=== PATIENT | female | born 1945 | race Caucasian/White ===

== ENCOUNTER 2019-03-08 07:34 | Inpatient (IN) | payer OTHER ==
[2019-03-08] MEDS ORDERED: Senna TAB 8.6 mg* TAB PO PRN (19:14)
[2019-03-08] MEDS ORDERED: Magnesium Hydroxide LIQ* 30 ML UDC PO PRN (19:14)
[2019-03-08] MEDS ORDERED: Atorvastatin* 80 MG TAB PO ONE (19:24)
[2019-03-08] MEDS: Acetaminophen TAB* 325 MG PO PRN (20:37)
[2019-03-08] MEDS: Docusate CAP* 100 MG PO SCH (20:37)
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
[2019-03-08] MEDS ORDERED: Atorvastatin* 10 MG TAB PO ONE (21:00)
[2019-03-08] MEDS: CMCS:Dabigatran CAP(NF) 150 MG CAP PO SCH (21:18)
[2019-03-09] MEDS: Acetaminophen TAB* 325 MG PO PRN ×3 (09:19→21:40)
[2019-03-09] MEDS: Docusate CAP* 100 MG PO SCH ×2 (09:19→21:18)
[2019-03-09] MEDS: Lisinopril TAB* 10 MG PO SCH (09:19)
[2019-03-09] MEDS: Metoprolol Succinate XL TAB* 50 MG PO SCH (09:20)
[2019-03-09] MEDS: Hydrochlorothiazide TAB* 25 MG PO SCH (09:20)
[2019-03-09] MEDS: CMCS:Dabigatran CAP(NF) 150 MG CAP PO SCH ×2 (09:20→21:18)
[2019-03-09] MEDS: Aspirin EC TAB* 81 MG TAB.EC PO SCH (09:20)
--- NOTE | 2019-03-09 11:48 | PN ---
Progress Note Date of Service: 03/09/19 Note: AJAY BABCOCK was visited. Therapy notes read and reviewed. She has significant ecchymoses on her left leg that I did not noticed last night. Leg was x-rayed in [place] Current Medications: Active Medications Generic Name Dose Route Start Last Admin Trade Name Freq PRN Reason Stop Dose Admin Acetaminophen 650 mg 03/08/19 19:14 03/09/19 09:19 Tylenol Tab* PO 650 mg Q4H PRN Administration MILD PAIN or TEMP > 100.4 Aspirin 81 mg 03/09/19 09:00 03/09/19 09:20 Aspirin Ec Tab* PO 81 mg DAILY PADILLA Administration Atorvastatin Calcium 10 mg 03/09/19 17:00 Lipitor* PO 1700 PADILLA Dabigatran 150 mg 03/08/19 21:00 03/09/19 09:20 Pradaxa Cap(Nf) PO 150 mg BID PADILLA Administration Docusate Sodium 100 mg 03/08/19 21:00 03/09/19 09:19 Colace Cap* PO 100 mg BID PADILLA Administration Hydrochlorothiazide 12.5 mg 03/09/19 09:00 03/09/19 09:20 Hydrodiuril Tab* PO 12.5 mg DAILY PADILLA Administration Lisinopril 40 mg 03/09/19 09:00 03/09/19 09:19 Prinivil Tab* PO 40 mg DAILY PADILLA Administration Magnesium Hydroxide 30 ml 03/08/19 19:14 Milk Of Magnesia Liq* PO Q6H PRN CONSTIPATION Metoprolol Succinate 75 mg 03/09/19 09:00 03/09/19 09:20 Toprol Xl Tab* PO 75 mg DAILY PADILLA Administration Senna 2 tab 03/08/19 19:14 Senokot 8.6 Mg Tab* PO BEDTIME PRN CONSTIPATION Vital Signs: Vital Signs Temp Pulse Resp BP Pulse Ox 98.0 F 59 18 136/57 97 03/09/19 05:14 03/09/19 05:14 03/09/19 05:14 03/09/19 05:14 03/09/19 05:14 Exam: GENERAL: A&O. No distress LUNGS: Clear HEART: Regular ABDOMEN: Soft EXTREMITIES: Left leg in [place], locked in extension. Right leg ecchymotic NEUROLOGIC: Alert. Sensation intact. Can move all 4 extremities, UE 5/5, LLE 5/5 , RLE in brace Assessment/Plan: 1. Right Tibial Plateau Fracture: NWB RLE. [place] brace locked in extension. PT /OT 2. Atrial Fibrillation: Toprol XL/Pradaxa/ASA 3. Advance Directives: Full code 4. HTN: Lisonopril (instead of Lotensin)/Toprol/HCTZ 5. DVT Prophylaxis: Pradaxa 03/09/19 11:48 03/09/19 11:50
[2019-03-09] MEDS: Atorvastatin* 10 MG TAB PO SCH (17:38)
[2019-03-10] MEDS: Acetaminophen TAB* 325 MG PO PRN ×4 (01:25→23:50)
[2019-03-10] MEDS: Aspirin EC TAB* 81 MG TAB.EC PO SCH (07:59)
[2019-03-10] MEDS: Docusate CAP* 100 MG PO SCH ×2 (08:02→20:45)
[2019-03-10] MEDS: Lisinopril TAB* 10 MG PO SCH (08:02)
[2019-03-10] MEDS: CMCS:Dabigatran CAP(NF) 150 MG CAP PO SCH ×2 (08:03→20:44)
[2019-03-10] MEDS: Metoprolol Succinate XL TAB* 50 MG PO SCH (08:11)
[2019-03-10] MEDS: Hydrochlorothiazide TAB* 25 MG PO SCH (08:13)
--- NOTE | 2019-03-10 09:50 | PN ---
Progress Note Date of Service: 03/10/19 Note: AJAY BABCOCK was visited. Nursing notes read and reviewed. She has a slight rash on her back. Will order hydrocortisone cream. Otherwise ok. Current Medications: Active Medications Generic Name Dose Route Start Last Admin Trade Name Freq PRN Reason Stop Dose Admin Acetaminophen 650 mg 03/08/19 19:14 03/10/19 08:02 Tylenol Tab* PO 650 mg Q4H PRN Administration MILD PAIN or TEMP > 100.4 Aspirin 81 mg 03/09/19 09:00 03/10/19 07:59 Aspirin Ec Tab* PO 81 mg DAILY PADILLA Administration Atorvastatin Calcium 10 mg 03/09/19 17:00 03/09/19 17:38 Lipitor* PO 10 mg 1700 PADILLA Administration Dabigatran 150 mg 03/08/19 21:00 03/10/19 08:03 Pradaxa Cap(Nf) PO 150 mg BID PADILLA Administration Docusate Sodium 100 mg 03/08/19 21:00 03/10/19 08:02 Colace Cap* PO 100 mg BID PADILLA Administration Hydrochlorothiazide 12.5 mg 03/09/19 09:00 03/10/19 08:13 Hydrodiuril Tab* PO 12.5 mg DAILY PADILLA Administration Lisinopril 40 mg 03/09/19 09:00 03/10/19 08:02 Prinivil Tab* PO 40 mg DAILY PADILLA Administration Magnesium Hydroxide 30 ml 03/08/19 19:14 Milk Of Magnesia Liq* PO Q6H PRN CONSTIPATION Metoprolol Succinate 75 mg 03/09/19 09:00 03/10/19 08:11 Toprol Xl Tab* PO 75 mg DAILY PADILLA Administration Senna 2 tab 03/08/19 19:14 Senokot 8.6 Mg Tab* PO BEDTIME PRN CONSTIPATION Vital Signs: Vital Signs Temp Pulse Resp BP Pulse Ox 97.7 F 51 16 127/59 99 03/10/19 05:59 03/10/19 05:59 03/10/19 09:30 03/10/19 05:59 03/10/19 05:59 Exam: GENERAL: A&O. No distress LUNGS: Clear HEART: Regular ABDOMEN: Soft EXTREMITIES: Left leg in [place], locked in extension. Right leg ecchymotic NEUROLOGIC: Alert. Sensation intact. Can move all 4 extremities, UE 5/5, LLE 5/5 , RLE in brace Assessment/Plan: 1. Right Tibial Plateau Fracture: NWB RLE. [place] brace locked in extension. PT /OT 2. Atrial Fibrillation: Toprol XL/Pradaxa/ASA 3. Advance Directives: Full code 4. HTN: Lisonopril (instead of Lotensin)/Toprol/HCTZ 5. DVT Prophylaxis: Pradaxa 6. Rash on back: Hydrocortisone cream 03/10/19 09:50
[2019-03-10] MEDS ORDERED: Hydrocortisone 1% CREAM* 30 GM TUBE TOPICAL ONE (17:30)
[2019-03-10] MEDS: Atorvastatin* 10 MG TAB PO SCH (17:41)
[2019-03-10] MEDS: Hydrocortisone 1% CREAM* 30 GM TUBE TOPICAL SCH (21:23)
[2019-03-11] MEDS: Acetaminophen TAB* 325 MG PO PRN ×3 (04:00→20:44)
[2019-03-11 04:51] LABS: ABS Basophils 0.1 10^3/ul (0-0.2); ABS Eosinophils 0.2 10^3/ul (0-0.6); ABS Lymphocytes 1.5 10^3/ul (1.0-4.8); ABS Monocytes 0.5 10^3/ul (0-0.8); ABS Neutrophils 4.2 10^3/ul (1.5-7.7); Eosinophil % 2.7 %; Hematocrit 35 % (35-47); Hemoglobin 11.8 g/dL (12.0-16.0); Lymphocyte % 23.1 %; Mean Corpuscular HGB Conc 34 g/dL (31-36); Mean Corpuscular Hemoglobin 32 pg (27-31); Mean Corpuscular Volume 92 fL (80-97); Mean Platelet Volume 8.5 fL (7.4-10.4); Nucleated Red Blood Cells % 0.1; Platelet Count 252 10^3/uL (150-450); Red Blood Count 3.75 10^6 /uL (3.70-4.87); Red Cell Distribution Width 14 % (10-15); White Blood Count 6.3 10^3/uL (3.5-10.8)
[2019-03-11 05:06] LABS: Albumin 3.7 g/dL (3.2-5.2); Albumin/Globulin Ratio 1.4 (1-3); BUN/Creatinine Ratio 34.2 (8-20); EGFR African American 56.2 (>60); EGFR Non-African American 46.5 (>60); Globulin 2.6 g/dL (2-4); Potassium 4.3 mmol/L (3.5-5.0); Total Bilirubin 0.6 mg/dL (0.2-1.0); Total Protein 6.3 g/dL (6.4-8.9)
[2019-03-11] MEDS: CMCS:Dabigatran CAP(NF) 150 MG CAP PO SCH ×2 (09:11→20:42)
[2019-03-11] MEDS: Docusate CAP* 100 MG PO SCH ×2 (09:11→20:42)
[2019-03-11] MEDS: Aspirin EC TAB* 81 MG TAB.EC PO SCH (09:11)
[2019-03-11] MEDS: Hydrochlorothiazide TAB* 25 MG PO SCH (09:12)
[2019-03-11] MEDS: Hydrocortisone 1% CREAM* 30 GM TUBE TOPICAL SCH ×2 (09:12→20:47)
[2019-03-11] MEDS: Lisinopril TAB* 10 MG PO SCH (09:13)
[2019-03-11] MEDS: Metoprolol Succinate XL TAB* 50 MG PO SCH (09:14)
--- NOTE | 2019-03-11 13:02 | PMRUTEAM ---
PMRU: Team Meeting Current Status: Nursing: Current Status Skin Deviations [L lower leg] Bruise Skin Deviations [R chest] Bruise Skin Deviations [Upper Back] Rash Skin Deviations [Right Leg] Incision Skin Deviations [Generalized] Bruise Skin Deviation Description [L hematoma unchanged lower leg] Skin Deviation Description [R hematoma unchanged chest] Skin Deviation Description [ unchanged Upper Back] Skin Deviation Description [ immobilizer in place Right Leg] Skin Deviation Description [ scattered Generalized] Physical Therapy: Current Status Bed Mobility Assistance Supervision Transfer Mobility Assistance Contact Guard Assist Transfer/Bed Mobility Rolling Walker Recommended Devices Ambulation Assistance Contact Guard Assist Ambulation Assistive Devices Rolling Walker Number of Feet Patient 8 Ambulated Stairs Assistance Not Tested Manual Wheelchair Control/ Bilateral UE's Technique Wheelchair Propulsion Ability Standby Assistance Wheelchair Distance (ft) 300 Objective Comments stand by assist for w/c mobility through hallways , around obstacles and turning to navigate through small spaces, pt requiring verbal cues for use of brakes and leg rests. Occupational Therapy: Current Status Upper Body Dressing Supervision Lower Body Dressing Min Assist Bathing Min Assist Toileting Min Assist Toilet Transfer Contact Guard Assist Shower Transfer Contact Guard Assist,Min Assist Shower Transfer Progress TBA Eating Ind with Adaptive Equip Eating Progress dentures Goals: Physical Therapy: Initial Goals Bed Mobility Assistance Independent Transfer Mobility Assistance Independent Transfer/Bed Mobility Rolling Walker Recommended Devices Ambulation Independent Ambulation Recommended Devices Rolling Walker Ambulation Distance 50 Wheelchair Propulsion Ability Independent Wheelchair Distance (ft) 150 Physical Therapy: Updated Goals Transfer/Bed Mobility Rolling Walker Recommended Devices Occupational Therapy: Initial Goals Goals to be Completed in (Days 7-10 days ) Upper Body Bathing Routine Modified Independent with Lower Body Bathing Routine Modified Independent with Upper Body Dressing Routine Modified Independent with Lower Body Dressing Routine Modified Independent with Toilet Hygeine and Clothing Modified Independent with Management Routine Toilet Transfer Routine Modified Independent with Step-In Shower Transfer Modified Independent with Routine Tub Transfer Routine Modified Independent with Functional Transfers for ADL Modified Independent with Grooming Routine Modified Independent with Feeding Routine Modified Independent with Light Housekeeping Tasks Modified Independent with Care Plan: Care Plan Coping/Psych-Improve/Maintain Start: 03/09/19 18:03 Freq: DAILY@0700,1900 Status: Active Target: 03/11/19 Protocol: Activity Type Activity Date Activity User E-Sign Co-Sign Detail Recorded Client Recorded Date Recorded By Document 03/11/19 07:00 [id number] [email or web address] 03/11/19 09:03 [id number] 03/11/19 07:00 PMRU Outcome: Coping/Psychosocial Current Coping Outcome/Goals Verbalization of Sense of Control Over Health Status Utilization of Appropriate Problem Solving Techniques Willingness to Participate in Treatment Plan and Basic Needs Utilization of Available Support Systems Progression Toward Outcome/Goals Progressing Outcome/Goals Met Performs Actions to Reduce Fear and Anxiety Performs Actions to Reduce Pain and Prevent Complications Current Psychosocial Outcome/Goals Maintain/ Improve Emotional Health Demonstrates Knowledge of Healthy Coping Mechanisms Available Cooperate/ Participate in Plan Progression Toward Outcome/Goals Progressing Outcome/Goals Met Demonstrated Knowledge of Healthy Coping Mechanisms Available DVT Prophylaxis- Improve/Maintain Start: 03/08/19 20:28 Freq: DAILY@0700,1900 Status: Active Target: 03/11/19 Protocol: Activity Type Activity Date Activity User E-Sign Co-Sign Detail Recorded Client Recorded Date Recorded By Document 03/11/19 07:00 [id number] 03/11/19 09:03 [id number] 03/11/19 07:00 PMRU Outcome: DVT Prophylaxis Current DVT Outcome/Goals Remains Free of DVT Free of complications from current DVT Complies with DVT Prophylaxis /Treatment Progression Toward Outcome/Goals Progressing Lack of Progression Comment Pt not able to tolerate TEDS, Pradaxa in use Discharge Planning - Improve/Maintain Start: 03/08/19 20:28 Freq: DAILY@0700,1900 Status: Active Target: 03/11/19 Protocol: Activity Type Activity Date Activity User E-Sign Co-Sign Detail Recorded Client Recorded Date Recorded By Document 03/11/19 07:00 [id number] 03/11/19 09:03 [id number] 03/11/19 07:00 PMRU Outcome: Discharge Planning Update Patient Family No Current Discharge Planning Outcome/Goals Demonstrates Understanding of Discharge Plan Progression Toward Outcome/Goals Progressing Education-Improve/Maintain Start: 03/08/19 20:28 Freq: DAILY@0700,1900 Status: Active Target: 03/11/19 Protocol: Activity Type Activity Date Activity User E-Sign Co-Sign Detail Recorded Client Recorded Date Recorded By Document 03/11/19 07:00 [id number] 03/11/19 09:03 [id number] 03/11/19 07:00 PMRU Outcome: Education Current Education Outcome/Goals Encourage Questions Progression Toward Outcome/Goals Progressing Mobility- Improve/Maintain Start: 03/08/19 20:28 Freq: DAILY@ Status: Active Target: 03/09/19 Protocol: Activity Type Activity Date Activity User E-Sign Co-Sign Detail Recorded Client Recorded Date Recorded By Document 03/09/19 18:21 [id number] [id number] 03/09/19 18:22 [id number] 03/09/19 18:21 PMRU Outcome: Mobility Physical Therapy Evaluation and Yes Treatment Activity OOB with Assistance Yes NWB Yes: RLE Device Yes Assistance Yes Patient to be seen 5x/wk for 60-120 min/ Therex day for: Mobility Training Gait Training W/C Mobility Balance Current Mobility Outcome/Goals Maintain/ Achieve Baseline Mobility Status Improve Mobility Status Demonstrates Proper Use of Assistive Devices Free from Complications of Immobility Progression Toward Outcome/Goals Goal Initiation Bed Mobility Yes: independent Transfers Yes: independent with RW Gait x ft Yes: independent with RW 50' W/C Mobility x ft Yes: independent with BUE 150' Pain/Comfort- Improve/Maintain Start: 03/08/19 20:28 Freq: DAILY@ Status: Active Target: 03/11/19 Protocol: Activity Type Activity Date Activity User E-Sign Co-Sign Detail Recorded Client Recorded Date Recorded By Document 03/11/19 07:00 [id number] 03/11/19 09:03 [id number] 03/11/19 07:00 PMRU Outcome: Pain/Comfort Current Pain/Comfort Outcome/Goals Demonstrates Knowledge and Use of Available Comfort Measures Achieves Acceptable Comfort/Pain Level as Determined by Patient/Condit Maintain Comfort Level Allowing Patient to Fully Participate in Rehab Progression Toward Outcome/Goals Progressing Outcome/Goals Met Achieves Acceptable Comfort/Pain Level as Determined by Patient/Condit Safety- Improve/Maintain Start: 03/08/19 18:19 Freq: DAILY@ Status: Active Target: 03/11/19 Protocol: Activity Type Activity Date Activity User E-Sign Co-Sign Detail Recorded Client Recorded Date Recorded By Document 03/11/19 07:00 [id number] 03/11/19 09:03 [id number] 03/11/19 07:00 PMRU Outcome: Safety Current Safety Outcome/Goals Remain Free of Injury or Harm Cooperates with Safety Measures for Least Restrictive Environment Progression Toward Outcome/Goals Progressing Outcome/Goals Met Cooperates with Safety Measures for Least Restrictive Environment Medicine Note: Length of Stay: 4 days Anticipated Discharge Destination: Tentative Discharge Date: 03/15/19 Discharged to: Home
[2019-03-11] MEDS: Atorvastatin* 10 MG TAB PO SCH (17:37)
--- NOTE | 2019-03-11 18:36 | PN ---
Progress Note Date of Service: 03/11/19 Note: AJAY BABCOCK was visited. Therapy notes read and reviewed. She was discussed in interdisciplinary plan of care rounds. She is doing quite well but has trouble with some ADLs Current Medications: Active Medications Generic Name Dose Route Start Last Admin Trade Name Freq PRN Reason Stop Dose Admin Acetaminophen 650 mg 03/08/19 19:14 03/11/19 09:13 Tylenol Tab* PO 650 mg Q4H PRN Administration MILD PAIN or TEMP > 100.4 Aspirin 81 mg 03/09/19 09:00 03/11/19 09:11 Aspirin Ec Tab* PO 81 mg DAILY PADILLA Administration Atorvastatin Calcium 10 mg 03/09/19 17:00 03/11/19 17:37 Lipitor* PO 10 mg 1700 PADILLA Administration Dabigatran 150 mg 03/08/19 21:00 03/11/19 09:11 Pradaxa Cap(Nf) PO 150 mg BID PADILLA Administration Docusate Sodium 100 mg 03/08/19 21:00 03/11/19 09:11 Colace Cap* PO 100 mg BID PADILLA Administration Hydrochlorothiazide 12.5 mg 03/09/19 09:00 03/11/19 09:12 Hydrodiuril Tab* PO 12.5 mg DAILY PADILLA Administration Hydrocortisone 1 applic 03/10/19 21:00 03/11/19 09:12 Hytone Cream 1%* TOPICAL 1 applic BID PADILLA Administration Lisinopril 40 mg 03/09/19 09:00 03/11/19 09:13 Prinivil Tab* PO 40 mg DAILY PADILLA Administration Magnesium Hydroxide 30 ml 03/08/19 19:14 Milk Of Magnesia Liq* PO Q6H PRN CONSTIPATION Metoprolol Succinate 75 mg 03/09/19 09:00 03/11/19 09:14 Toprol Xl Tab* PO 75 mg DAILY PADILLA Administration Senna 2 tab 03/08/19 19:14 Senokot 8.6 Mg Tab* PO BEDTIME PRN CONSTIPATION Vital Signs: Vital Signs Temp Pulse Resp BP Pulse Ox 97.6 F 60 18 137/59 100 03/11/19 16:52 03/11/19 16:52 03/11/19 16:52 03/11/19 16:52 03/11/19 16:52 Lab Results: Laboratory Results - last 24 hr 03/11/19 03/11/19 04:34 04:34 WBC 6.3 RBC 3.75 Hgb 11.8 L Hct 35 MCV 92 MCH 32 H MCHC 34 RDW 14 Plt Count 252 MPV 8.5 Neut % (Auto) 65.7 Lymph % (Auto) 23.1 [place] % (Auto) 7.6 Eos % (Auto) 2.7 Baso % (Auto) 0.9 Absolute Neuts (auto) 4.2 Absolute Lymphs (auto) 1.5 Absolute Monos (auto) 0.5 Absolute Eos (auto) 0.2 Absolute Basos (auto) 0.1 Absolute Nucleated RBC 0.0 Nucleated RBC % 0.1 Sodium 138 Potassium 4.3 Chloride 107 Carbon Dioxide 24 Anion Gap 7 BUN 39 H Creatinine 1.14 H Est GFR ( Amer) 56.2 Est GFR (Non-Af Amer) 46.5 BUN/Creatinine Ratio 34.2 H Glucose 109 H Calcium 9.0 Total Bilirubin 0.60 AST 13 ALT 20 Alkaline Phosphatase 76 Total Protein 6.3 L Albumin 3.7 Globulin 2.6 Albumin/Globulin Ratio 1.4 Exam: GENERAL: A&O. No distress LUNGS: Clear HEART: Regular ABDOMEN: Soft EXTREMITIES: Left leg in [place], locked in extension. Right leg ecchymotic NEUROLOGIC: Alert. Sensation intact. Can move all 4 extremities, UE 5/5, LLE 5/5 , RLE in brace Assessment/Plan: 1. Right Tibial Plateau Fracture: NWB RLE. [place] brace locked in extension. PT /OT 2. Atrial Fibrillation: Toprol XL/Pradaxa/ASA 3. Advance Directives: Full code 4. HTN: Lisonopril (instead of Lotensin)/Toprol/HCTZ 5. DVT Prophylaxis: Pradaxa 6. Rash on back: Hydrocortisone cream 03/11/19 18:36
[2019-03-12] MEDS: Acetaminophen TAB* 325 MG PO PRN ×3 (01:51→20:05)
[2019-03-12] MEDS: Aspirin EC TAB* 81 MG TAB.EC PO SCH (08:51)
[2019-03-12] MEDS: Lisinopril TAB* 10 MG PO SCH (08:51)
[2019-03-12] MEDS: CMCS:Dabigatran CAP(NF) 150 MG CAP PO SCH ×2 (08:53→20:05)
[2019-03-12] MEDS: Docusate CAP* 100 MG PO SCH ×2 (08:53→20:05)
[2019-03-12] MEDS: Hydrochlorothiazide TAB* 25 MG PO SCH (08:54)
[2019-03-12] MEDS: Metoprolol Succinate XL TAB* 50 MG PO SCH (08:55)
[2019-03-12] MEDS: Hydrocortisone 1% CREAM* 30 GM TUBE TOPICAL SCH ×2 (08:59→20:10)
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
[2019-03-12] MEDS: Atorvastatin* 10 MG TAB PO SCH (17:40)
--- NOTE | 2019-03-12 21:19 | PN ---
Progress Note Date of Service: 03/12/19 Note: AJAY BABCOCK was visited. Therapy notes read and reviewed. Patient was discussed in interdisciplinary team rounds. She is doing fairly well. Her pain is controlled. Current Medications: Active Medications Generic Name Dose Route Start Last Admin Trade Name Freq PRN Reason Stop Dose Admin Acetaminophen 650 mg 03/08/19 19:14 03/12/19 20:05 Tylenol Tab* PO 650 mg Q4H PRN Administration MILD PAIN or TEMP > 100.4 Aspirin 81 mg 03/09/19 09:00 03/12/19 08:51 Aspirin Ec Tab* PO 81 mg DAILY PADILLA Administration Atorvastatin Calcium 10 mg 03/09/19 17:00 03/12/19 17:40 Lipitor* PO 10 mg 1700 PADILLA Administration Dabigatran 150 mg 03/08/19 21:00 03/12/19 20:05 Pradaxa Cap(Nf) PO 150 mg BID PADILLA Administration Docusate Sodium 100 mg 03/08/19 21:00 03/12/19 20:05 Colace Cap* PO 100 mg BID PADILLA Administration Hydrochlorothiazide 12.5 mg 03/09/19 09:00 03/12/19 08:54 Hydrodiuril Tab* PO 12.5 mg DAILY PADILLA Administration Hydrocortisone 1 applic 03/10/19 21:00 03/12/19 20:10 Hytone Cream 1%* TOPICAL 1 applic BID PADILLA Administration Lisinopril 40 mg 03/09/19 09:00 03/12/19 08:51 Prinivil Tab* PO 40 mg DAILY PADILLA Administration Magnesium Hydroxide 30 ml 03/08/19 19:14 Milk Of Magnesia Liq* PO Q6H PRN CONSTIPATION Metoprolol Succinate 75 mg 03/09/19 09:00 03/12/19 08:55 Toprol Xl Tab* PO 75 mg DAILY PADILLA Administration Senna 2 tab 03/08/19 19:14 Senokot 8.6 Mg Tab* PO BEDTIME PRN CONSTIPATION Vital Signs: Vital Signs Temp Pulse Resp BP Pulse Ox 97.5 F 68 20 102/35 97 03/12/19 19:35 03/12/19 19:35 03/12/19 19:35 03/12/19 19:35 03/12/19 19:35 Exam: GENERAL: A&O. No distress LUNGS: Clear HEART: Regular ABDOMEN: Soft EXTREMITIES: Left leg in [place], locked in extension. Right leg ecchymotic NEUROLOGIC: Alert. Sensation intact. Can move all 4 extremities, UE 5/5, LLE 5/5 , RLE in brace Assessment/Plan: 1. Right Tibial Plateau Fracture: NWB RLE. [place] brace locked in extension. PT /OT 2. Atrial Fibrillation: Toprol XL/Pradaxa/ASA 3. Advance Directives: Full code 4. HTN: Lisonopril (instead of Lotensin)/Toprol/HCTZ 5. DVT Prophylaxis: Pradaxa 6. Rash on back: Hydrocortisone cream 03/12/19 21:20
[2019-03-13] MEDS: Acetaminophen TAB* 325 MG PO PRN (01:03)
[2019-03-13] MEDS: Aspirin EC TAB* 81 MG TAB.EC PO SCH (08:46)
[2019-03-13] MEDS: CMCS:Dabigatran CAP(NF) 150 MG CAP PO SCH ×2 (08:46→20:51)
[2019-03-13] MEDS: Lisinopril TAB* 10 MG PO SCH (08:46)
[2019-03-13] MEDS: Hydrocortisone 1% CREAM* 30 GM TUBE TOPICAL SCH ×2 (08:46→20:51)
[2019-03-13] MEDS: Docusate CAP* 100 MG PO SCH ×2 (08:46→20:51)
[2019-03-13] MEDS: Metoprolol Succinate XL TAB* 50 MG PO SCH (08:47)
[2019-03-13] MEDS: Hydrochlorothiazide TAB* 25 MG PO SCH (08:49)
[2019-03-13] MEDS: Atorvastatin* 10 MG TAB PO SCH (16:44)
--- NOTE | 2019-03-13 21:24 | PN ---
Progress Note Date of Service: 03/13/19 Note: AJAY BABCOCK was visited. Therapy notes read and reviewed. She has no complaints today. She will go home to her daughter's house Current Medications: Active Medications Generic Name Dose Route Start Last Admin Trade Name Freq PRN Reason Stop Dose Admin Acetaminophen 650 mg 03/08/19 19:14 03/13/19 01:03 Tylenol Tab* PO 650 mg Q4H PRN Administration MILD PAIN or TEMP > 100.4 Aspirin 81 mg 03/09/19 09:00 03/13/19 08:46 Aspirin Ec Tab* PO 81 mg DAILY PADILLA Administration Atorvastatin Calcium 10 mg 03/09/19 17:00 03/13/19 16:44 Lipitor* PO 10 mg 1700 PADILLA Administration Dabigatran 150 mg 03/08/19 21:00 03/13/19 20:51 Pradaxa Cap(Nf) PO 150 mg BID PADILLA Administration Docusate Sodium 100 mg 03/08/19 21:00 03/13/19 20:51 Colace Cap* PO 100 mg BID PADILLA Administration Hydrochlorothiazide 12.5 mg 03/09/19 09:00 03/13/19 08:49 Hydrodiuril Tab* PO 12.5 mg DAILY PADILLA Administration Hydrocortisone 1 applic 03/10/19 21:00 03/13/19 20:51 Hytone Cream 1%* TOPICAL 1 applic BID PADILLA Administration Lisinopril 40 mg 03/09/19 09:00 03/13/19 08:46 Prinivil Tab* PO 40 mg DAILY PADILLA Administration Magnesium Hydroxide 30 ml 03/08/19 19:14 Milk Of Magnesia Liq* PO Q6H PRN CONSTIPATION Metoprolol Succinate 75 mg 03/09/19 09:00 03/13/19 08:47 Toprol Xl Tab* PO 75 mg DAILY PADILLA Administration Senna 2 tab 03/08/19 19:14 Senokot 8.6 Mg Tab* PO BEDTIME PRN CONSTIPATION Vital Signs: Vital Signs Temp Pulse Resp BP Pulse Ox 98.3 F 72 18 109/52 95 03/13/19 16:21 03/13/19 16:21 03/13/19 16:21 03/13/19 16:21 03/13/19 16:21 Exam: GENERAL: A&O. No distress LUNGS: Clear HEART: Regular ABDOMEN: Soft EXTREMITIES: Left leg in [place], locked in extension. Right leg ecchymotic NEUROLOGIC: Alert. Sensation intact. Can move all 4 extremities, UE 5/5, LLE 5/5 , RLE in brace Assessment/Plan: 1. Right Tibial Plateau Fracture: NWB RLE. [place] brace locked in extension. PT /OT 2. Atrial Fibrillation: Toprol XL/Pradaxa/ASA 3. Advance Directives: Full code 4. HTN: Lisonopril (instead of Lotensin)/Toprol/HCTZ 5. DVT Prophylaxis: Pradaxa 6. Rash on back: Hydrocortisone cream 03/13/19 21:24
[2019-03-14] MEDS: Metoprolol Succinate XL TAB* 50 MG PO SCH (08:09)
[2019-03-14] MEDS: Hydrochlorothiazide TAB* 25 MG PO SCH (08:10)
[2019-03-14] MEDS: Lisinopril TAB* 10 MG PO SCH (08:11)
[2019-03-14] MEDS: CMCS:Dabigatran CAP(NF) 150 MG CAP PO SCH ×2 (08:11→21:09)
[2019-03-14] MEDS: Docusate CAP* 100 MG PO SCH ×2 (08:11→21:09)
[2019-03-14] MEDS: Aspirin EC TAB* 81 MG TAB.EC PO SCH (08:12)
[2019-03-14] MEDS: Hydrocortisone 1% CREAM* 30 GM TUBE TOPICAL SCH ×2 (10:20→21:09)
[2019-03-14] MEDS: Acetaminophen TAB* 325 MG PO PRN ×2 (13:22→21:09)
[2019-03-14] MEDS: Atorvastatin* 10 MG TAB PO SCH (16:40)
--- NOTE | 2019-03-14 17:46 | PN ---
Progress Note Date of Service: 03/14/19 Note: AJAY BABCOCK was visited. Therapy notes read and reviewed. She is set for discharge tomorrow. Moving pretty well. No complaints of pain Current Medications: Active Medications Generic Name Dose Route Start Last Admin Trade Name Freq PRN Reason Stop Dose Admin Acetaminophen 650 mg 03/08/19 19:14 03/14/19 13:22 Tylenol Tab* PO 650 mg Q4H PRN Administration MILD PAIN or TEMP > 100.4 Aspirin 81 mg 03/09/19 09:00 03/14/19 08:12 Aspirin Ec Tab* PO 81 mg DAILY PADILLA Administration Atorvastatin Calcium 10 mg 03/09/19 17:00 03/14/19 16:40 Lipitor* PO 10 mg 1700 PADILLA Administration Dabigatran 150 mg 03/08/19 21:00 03/14/19 08:11 Pradaxa Cap(Nf) PO 150 mg BID PADILLA Administration Docusate Sodium 100 mg 03/08/19 21:00 03/14/19 08:11 Colace Cap* PO 100 mg BID PADILLA Administration Hydrochlorothiazide 12.5 mg 03/09/19 09:00 03/14/19 08:10 Hydrodiuril Tab* PO 12.5 mg DAILY PADILLA Administration Hydrocortisone 1 applic 03/10/19 21:00 03/14/19 10:20 Hytone Cream 1%* TOPICAL Not Given BID PADILLA Lisinopril 40 mg 03/09/19 09:00 03/14/19 08:11 Prinivil Tab* PO 40 mg DAILY PADILLA Administration Magnesium Hydroxide 30 ml 03/08/19 19:14 Milk Of Magnesia Liq* PO Q6H PRN CONSTIPATION Metoprolol Succinate 75 mg 03/09/19 09:00 03/14/19 08:09 Toprol Xl Tab* PO 75 mg DAILY PADILLA Administration Senna 2 tab 03/08/19 19:14 Senokot 8.6 Mg Tab* PO BEDTIME PRN CONSTIPATION Vital Signs: Vital Signs Temp Pulse Resp BP Pulse Ox 97.6 F 65 16 107/50 97 03/14/19 16:33 03/14/19 16:33 03/14/19 16:33 03/14/19 16:33 03/14/19 16:42 Exam: GENERAL: A&O. No distress LUNGS: Clear HEART: Regular ABDOMEN: Soft EXTREMITIES: Left leg in [place], locked in extension. Right leg ecchymotic NEUROLOGIC: Alert. Sensation intact. Can move all 4 extremities, UE 5/5, LLE 5/5 , RLE in brace Assessment/Plan: 1. Right Tibial Plateau Fracture: NWB RLE. [place] brace locked in extension. PT /OT 2. Atrial Fibrillation: Toprol XL/Pradaxa/ASA 3. Advance Directives: Full code 4. HTN: Lisonopril (instead of Lotensin)/Toprol/HCTZ 5. DVT Prophylaxis: Pradaxa 6. Rash on back: Hydrocortisone cream 03/14/19 17:46
[2019-03-15] MEDS: Metoprolol Succinate XL TAB* 50 MG PO SCH (07:30)
[2019-03-15] MEDS: Aspirin EC TAB* 81 MG TAB.EC PO SCH (07:30)
[2019-03-15] MEDS: Docusate CAP* 100 MG PO SCH (07:30)
[2019-03-15] MEDS: Acetaminophen TAB* 325 MG PO PRN (07:30)
[2019-03-15] MEDS: CMCS:Dabigatran CAP(NF) 150 MG CAP PO SCH (07:30)
[2019-03-15] MEDS: Lisinopril TAB* 10 MG PO SCH (07:30)
[2019-03-15] MEDS: Hydrocortisone 1% CREAM* 30 GM TUBE TOPICAL SCH (09:45)
[2019-03-15] MEDS: Hydrochlorothiazide TAB* 25 MG PO SCH (09:46)
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
[2019-03-15 16:12] VITALS: BP 109/56
[2019-03-15] MEDS: Atorvastatin* 10 MG TAB PO SCH (16:28)
== END 2019-03-15 18:20 | disposition home health service (06) | DRG 860 ==
LOC: EEVIPCON 18:12 → PMRU 18:12
PROVIDERS: ADMIT Physical Medicine & Rehabilitation; ATTEND Physical Medicine & Rehabilitation
PROC: F07Z5ZZ Bed Mobility Treatment (ICD-10-PCS; principal; 2019-03-08)
PROC: F07Z9ZZ Gait Training/Functional Ambulation Treatment (ICD-10-PCS; 2019-03-08)
PROC: F07Z8ZZ Transfer Training Treatment (ICD-10-PCS; 2019-03-08)
PROC: F07Z4ZZ Wheelchair Mobility Treatment (ICD-10-PCS; 2019-03-08)
PROC: F08Z0ZZ Bathing/Showering Techniques Treatment (ICD-10-PCS; 2019-03-08)
PROC: F08Z1ZZ Dressing Techniques Treatment (ICD-10-PCS; 2019-03-08)
PROC: F08Z3ZZ Feeding/Eating Treatment (ICD-10-PCS; 2019-03-08)
DX: S82.141D Displaced bicondylar fracture of right tibia, subsequent encounter for closed fracture with routine healing (principal); V49.88XD Car occupant (driver) (passenger) injured in other specified transport accidents, subsequent encounter; I48.91 Unspecified atrial fibrillation; R91.1 Solitary pulmonary nodule; I10 Essential (primary) hypertension; R21 Rash and other nonspecific skin eruption; Z79.1 Long term (current) use of non-steroidal anti-inflammatories (NSAID); Z79.82 Long term (current) use of aspirin; Z79.899 Other long term (current) drug therapy; Z88.2 Allergy status to sulfonamides; Z88.8 Allergy status to other drugs, medicaments and biological substances; Z79.01 Long term (current) use of anticoagulants
CPT/HCPCS: 36415; 80053; 85025; A9270-GY

== ENCOUNTER 2019-10-31 16:19 | Emergency (ER) | payer MEDICARE ==
[2019-10-31 18:51] LABS: ABS Basophils 0.1 10^3/ul (0-0.2); ABS Eosinophils 0.1 10^3/ul (0-0.6); ABS Lymphocytes 1.8 10^3/ul (1.0-4.8); ABS Monocytes 0.3 10^3/ul (0-0.8); Hematocrit 40 % (35-47); Hemoglobin 14.1 g/dL (12.0-16.0); Lymphocyte % 23.2 %; Mean Corpuscular HGB Conc 35 g/dL (31-36); Mean Corpuscular Hemoglobin 32 pg (27-31); Mean Corpuscular Volume 90 fL (80-97); Mean Platelet Volume 8.9 fL (7.4-10.4); Platelet Count 227 10^3/uL (150-450); Red Blood Count 4.48 10^6 /uL (3.70-4.87); Red Cell Distribution Width 13 % (10-15); White Blood Count 7.6 10^3/uL (3.5-10.8)
[2019-10-31 19:07] LABS: Albumin 4.3 g/dL (3.2-5.2); Albumin/Globulin Ratio 1.5 (1-3); BUN/Creatinine Ratio 34.5 (8-20); Calcium 9.7 mg/dL (8.6-10.3); EGFR African American 58.6 (>60); EGFR Non-African American 48.4 (>60); Globulin 2.9 g/dL (2-4); Potassium 3.8 mmol/L (3.5-5.0); Total Bilirubin 0.5 mg/dL (0.2-1.0); Total Protein 7.2 g/dL (6.4-8.9)
[2019-10-31 19:19] LABS: INR 1.58 (0.82-1.09)
[2019-10-31 19:39] LABS: Activated Partial Thrombo Time 106.9 seconds (26.0-38.0)
[2019-10-31 20:02] VITALS: BP 149/105
== END 2019-10-31 20:01 | disposition short-term general hospital (02) ==
LOC: ED 16:19